=== PATIENT | male | born 1980 | race Caucasian/White ===

== ENCOUNTER → 2018-02-25 | Outpatient (CLI) | payer OTHER | END | disposition home or self-care (01) | LOC: C.LAB1850 08:05 | PROVIDERS: ATTEND Physician Assistant Medical | DX: Z00.00 Encounter for general adult medical examination without abnormal findings (principal) ==

== ENCOUNTER → 2018-06-15 | Outpatient (CLI) | payer OTHER ==
[~2018-06-15] MED LIST: GADAVIST IV PRN
--- NOTE | 2018-06-15 10:10 | DIAGNOSTIC IMAGING REPORT ---
MRI OF THE LUMBAR SPINE WITH AND WITHOUT CONTRAST CLINICAL HISTORY: Low back pain radiating into left lower extremity. Left lower extremity numbness. COMPARISON STUDY: Lumbar spine radiographs June 07, 2018. TECHNIQUE: Utilizing a 1.5 Maryanne magnet and dedicated coil, multiplanar, multiecho imaging of the lumbar spine was performed before and after uneventful IV administration of 10.5 mL of Gadavist. FINDINGS: For purposes of numbering on this exam, the L5-S1 disc space is assigned to axial image 27 of 30. Alignment of the lumbar spine is anatomic. Vertebral body heights are maintained. There is no intracanalicular mass, fluid collection or abnormal enhancement. The conus terminates at the upper L1 level. Paravertebral soft tissues are unremarkable. L1-2: The central canal and neural foramen are patent. L2-3: The central canal and neural foramen are patent. L3-4: Central canal and neural foramen are patent. L4-5: The central canal and neural foramen are patent. L5-S1: There is a broad-based central/left paracentral disc protrusion which results in moderate narrowing of the left lateral recess with mass effect upon the descending left S1 nerve root. The neural foramen are patent. There is mild narrowing of the central canal at this level. IMPRESSION: Broad-based central/left paracentral disc protrusion at L5-S1 which results in moderate narrowing of the left lateral recess and mild narrowing of the central canal with mass effect upon the descending left S1 nerve root which is displaced posteriorly. This could be correlated with left S1 radiculopathy. Otherwise, unremarkable lumbar spine MRI. Electronically signed by: Enoch Jones M.D. 06/15/2018 10:08 AM Dictated Date/Time: 06/15/2018 10:04 AM
== END | disposition home or self-care (01) ==
LOC: C.MRIBC 08:49
PROVIDERS: ATTEND Nurse Practitioner Adult Health
DX: R20.8 Other disturbances of skin sensation (principal); M51.27 Other intervertebral disc displacement, lumbosacral region; M99.73 Connective tissue and disc stenosis of intervertebral foramina of lumbar region